=== PATIENT | male | born 1975 | race Caucasian/White ===

== ENCOUNTER 2019-08-12 09:35 | Outpatient (CLI) | payer OTHER ==
--- NOTE | 2019-08-12 10:45 | MMO ---
Bilateral MAMMO Bilat Diag [facility]. CLINICAL HISTORY: Patient is 43 years old and is seen for diagnostic exam and palpable abnormality in the left breast. The patient has the following family history of breast cancer: cousin female. The patient has no personal history of cancer. VIEWS: The views performed were: bilateral craniocaudal with tomosynthesis; bilateral mediolateral oblique with tomosynthesis; bilateral mediolateral with tomosynthesis; left exaggerated craniocaudal; and left exaggerated craniocaudal with tomosynthesis. FILMS COMPARED: The present examination has been compared to a prior imaging study performed at [facility], [place] on 08/12/2019. This study has been interpreted with the assistance of computer-aided detection. MAMMOGRAM FINDINGS: The breasts are almost entirely fat. Normal intramammory and axillary lymph nodes. There are no suspicious masses, suspicious calcifications, or new areas of architectural distortion. IMPRESSION: THERE IS NO MAMMOGRAPHIC EVIDENCE OF MALIGNANCY. ULTRASOUND CONFIRMS AXILLARY AND INTRAMAMMORY LYMPH NODEES IN GENERAL AREA OF PALPABLE CONCERN. A ROUTINE FOLLOW-UP MAMMOGRAM IN 1 YEAR IS RECOMMENDED. THE RESULTS OF THIS EXAM WERE SENT TO THE PATIENT. ACR BI-RADS Category 2 - Benign finding MAMMOGRAPHY NOTE: 1. A negative mammogram report should not delay a biopsy if a dominant of clinically suspicious mass is present. 2. Approximately 10% to 15% of breast cancers are not detected by mammography. 3. Adenosis and dense breasts may obscure an underlying neoplasm. Reported by: PRETTY SPRAGUE MD Electonically Signed: [id number]
--- NOTE | 2019-08-12 13:18 | ULT ---
LEFT BREAST ULTRASOUND AND AXILLARY ULTRASOUND FOR A PALPABLE FINDING IN THE AXILLARY TAIL REGION: FINDINGS: There are several lymph nodes noted in the axillary tail region of the breast as well as left axillar y lymph nodes. There is a very fatty axillary lymph node which is somewhat enlarged, but it is almos t entirely replaced for fat, so this does not have the appearance of any type of pathologic lymph nod e. No evidence for other solid mass. IMPRESSION: Multiple lymph nodes within the left axilla and axillary tail region of the left breast. These lymph nodes do not have a pathologic appearance. POS: [facility]
== END 2019-08-12 09:36 | disposition home or self-care (01) ==
LOC: BICMAMMO 09:35
PROVIDERS: ATTEND Family Medicine Sports Medicine
DX: N63.20 Unspecified lump in the left breast, unspecified quadrant (principal); R59.0 Localized enlarged lymph nodes
CPT/HCPCS: 77066; G0279